=== PATIENT | female | born 1960 | race African-American/Black ===

== ENCOUNTER 2019-02-06 09:29 | Emergency (ER) | payer OTHER ==
[2019-02-06] MEDS: KETOROLAC 15 MG INJ IV (12:46)
[2019-02-06] MEDS: LIDOCAINE/MYLANTA 40 ML BTL PO (12:46)
[2019-02-06] MEDS: SOD CHLORIDE 0.9% 1,000 ML IV (12:46)
[2019-02-06] MEDS: ONDANSETRON 4 MG INJ IV (12:46)
[2019-02-06] MEDS: BELLADONNA/PHENOBARBITAL TAB PO (12:46)
[2019-02-06 12:52] LABS: ADD MAN DIFF? NO
[2019-02-06 12:59] LABS: WHITE BLOOD COUNT 5.4 10^3/ul (4.8-10.8)
[2019-02-06 12:59] LABS: BASOPHIL # 0.1 10^3/ul (0.0-0.1); BASOPHILS % 1.1 % (0.0-2.0); EOSINOPHILS # 0.2 10^3/ul (0.0-0.5); EOSINOPHILS % 3.2 % (0.0-7.0); HEMATOCRIT 38.1 % (37.0-47.0); HEMOGLOBIN 12.1 g/dl (12.0-16.0); LYMPHOCYTES # 2.1 10^3/ul (0.8-2.9); LYMPHOCYTES % 38.5 % (15.0-51.0); MEAN CORPUSCULAR HGB CONC 31.8 g/dl (32.0-37.0); MEAN CORPUSCULAR VOLUME 88.2 fl (82.0-101.0); MEAN PLATELET VOLUME 11.4 fl (7.4-10.4); MONOCYTE # 0.4 10^3/ul (0.3-0.9); MONOCYTES % 7.1 % (0.0-11.0); NEUTROPHIL # 2.7 10^3/ul (1.6-7.5); NEUTROPHILS % 49.7 % (39.0-77.0); PLATELET COUNT 253 10^3/UL (140-415); RED BLOOD COUNT 4.32 10^6/ul (4.20-5.40)
[2019-02-06 13:04] LABS: ADD UMIC YES; UR ASCORBIC ACID NEGATIVE (NEGATIVE); UR BILIRUBIN (Dip) NEGATIVE (NEGATIVE); UR BLOOD (Dip) NEGATIVE (NEGATIVE); UR CLARITY CLEAR (CLEAR); UR COLOR STRAW (YELLOW); UR GLUCOSE (Dip) NEGATIVE (NEGATIVE); UR KETONES (Dip) NEGATIVE (NEGATIVE); UR LEUKOCYTE ESTERASE (Dip) 1+ Leu/ul (NEGATIVE); UR NITRITE (Dip) NEGATIVE (NEGATIVE); UR RBC 1 /HPF (0-5); UR SPECIFIC GRAVITY (Dip) 1.008 (1.003-1.030); UR TOTAL PROTEIN (Dip) NEGATIVE (NEGATIVE); UR UROBILINOGEN (Dip) NEGATIVE (NEGATIVE); UR WBC 0 /HPF (0-5)
[2019-02-06 13:16] LABS: ALANINE AMINOTRANSFERASE 17 IU/L (13-69); ALBUMIN 4.5 g/dl (3.3-4.9); ALBUMIN/GLOBULIN RATIO 1.25; ALKALINE PHOSPHATASE 119 IU/L (42-121); ANION GAP 8 (5-13); ASPARTATE AMINO TRANSFERASE 25 IU/L (15-46); BILIRUBIN,INDIRECT 0.2 mg/dl (0-1.1); BILIRUBIN,TOTAL 0.2 mg/dl (0.2-1.3); BLOOD UREA NITROGEN 10 mg/dl (7-20); CALCIUM 9.9 mg/dl (8.4-10.2); CARBON DIOXIDE 29 mmol/L (21-31); CHLORIDE 106 mmol/L (97-110); Estimated GFR > 60 mL/min (>60); GLUCOSE 94 mg/dl (70-220); LIPASE 91 U/L (23-300); SODIUM 143 mmol/L (135-144); TOTAL PROTEIN 8.1 g/dl (6.1-8.1)
[2019-02-06 13:18] LABS: INR 0.89; PROTIME 12.2 Sec (11.9-14.9)
== END 2019-02-06 18:24 | disposition home or self-care (01) ==
LOC: E/R 09:29
DX: R10.32 Left lower quadrant pain (principal)
CPT/HCPCS: 36415; 74176; 80053; 81001; 83690; 85025; 85610; 85730; 96374; 96375; 99285-25